=== PATIENT | male | born 1980 | race Caucasian/White ===

== ENCOUNTER 2024-12-16 15:46 | Emergency (ER) | payer SELFPAY ==
[2024-12-16 15:46] VITALS: BP 138/95; PULSE 94; RESP 18; TEMP 36.6; O2SAT 100
--- NOTE | 2024-12-16 15:51 | ED.GENADULT ---
HPI - General Adult General Chief complaint: Urogenital-Male Stated complaint: STD check Time Seen by Provider: 12/16/24 15:48 Source: patient Related Data Allergies Allergy/AdvReac Type Severity Reaction Status Date / Time No Known Allergies Allergy Verified 12/16/24 15:51 [facility] Social History Social History Alcohol intake: current Course Vital Signs Vital signs: Vital Signs Temperature 36.6 C 12/16/24 15:46 Pulse Rate 94 12/16/24 15:46 Respiratory Rate 18 12/16/24 15:46 Blood Pressure 138/95 H 12/16/24 15:46 Pulse Oximetry 100 12/16/24 15:46 Oxygen Delivery Room Air 12/16/24 15:46 Temperature 36.6 C 12/16/24 15:46 Pulse Rate 94 12/16/24 15:46 Respiratory Rate 18 12/16/24 15:46 Blood Pressure 138/95 H 12/16/24 15:46 Pulse Oximetry 100 12/16/24 15:46 Oxygen Delivery Room Air 12/16/24 15:46 Medical Decision Making Vital Signs Vital Signs: Vital Signs Temperature 36.6 C 12/16/24 15:46 Pulse Rate 94 12/16/24 15:46 Respiratory Rate 18 12/16/24 15:46 Blood Pressure 138/95 H 12/16/24 15:46 Pulse Oximetry 100 12/16/24 15:46 Oxygen Delivery Room Air 12/16/24 15:46 Temperature 36.6 C 12/16/24 15:46 Pulse Rate 94 12/16/24 15:46 Respiratory Rate 18 12/16/24 15:46 Blood Pressure 138/95 H 12/16/24 15:46 Pulse Oximetry 100 12/16/24 15:46 Oxygen Delivery Room Air 12/16/24 15:46 Lab Data Labs: Lab Results 12/16/24 12/16/24 Range/Units 15:51 15:53 Urine Color Light yellow (Yellow) Urine Appearance Cloudy A (Clear) Urine pH 6.0 (5.0-8.0) Ur Specific [place] 1.025 H (1.010-1.020) Urine Protein Negative (Negative) Urine Glucose (UA) Negative (Negative) Urine Ketones Negative (Negative) Ur Blood (Man) Trace-intact H (Negative) Urine Nitrate Negative (Negative) Urine Bilirubin Negative (Negative) Urine Urobilinogen 0.2 (0.2-1.0) mg/dL Leukocyte Esterase Rfl 1+ H (Negative) YAMILETH/UL Urine RBC 11-20 H (0-2) /hpf Urine WBC >75 H (0-3) /hpf Urine WBC Clumps Present H (None) /hpf Ur Squamous Epith Cells Occasional (Few) /hpf Amorphous Sediment Few H (None) Urine Bacteria 2+ H (None) /hpf C. trachomatis (PCR) Pending N. gonorrhoeae (PCR) Pending Discharge Plan Discharge Clinical Impression: Urinary tract infection, Exposure to STD Patient Disposition: Home Condition: Stable Instructions: Antibiotic Form, Sexually Transmitted Diseases (ED), Urinary Tract Infection in Men (ED) Additional Instructions: Return if symptoms are worsening , call your family physician for appointment, take Tylenol as as needed for aches and pain, continue home medications. Go to health department at [place] for further evaluation Patient Language: Azeri Follow-up/Referrals: Armando Garcias MD [Primary Care Provider] -
[2024-12-16 16:42] LABS: Add Urine Microscopic? YES; Bilirubin Urine Negative (Negative); Blood Urine Trace-intact (Negative); Color Urine Light Yellow (Yellow); Glucose Urine UA Negative (Negative); Ketones Urine Negative (Negative); Leukocyte Esterase Ur 1+ LEU/UL (Negative); Nitrate Urine Negative (Negative); Protein Urine Negative (Negative); Specific Grav Ur 1.025 (1.010-1.020); Urobilinogen Urine 0.2 mg/dL (0.2-1.0)
[2024-12-16 16:50] LABS: Appearance Urine Cloudy (Clear); WBC Urine >75 /hpf (0-3)
[2024-12-16 16:51] LABS: Amorphous Sediment Urine Few; Bacteria Urine 2+ /hpf; Squamous Epithelial Cell Urine Occasional /hpf (Few); WBC Clumps Urine Present /hpf
[2024-12-16] MEDS: CIPROFLOXACIN 500 MG TAB PO (17:07)
[2024-12-16] MEDS: DOXYCYCLINE HYCLATE 100 MG TABLET PO (17:07)
[2024-12-16] MEDS: cefTRIAXone 1 GM VIAL 0.5 GM IM (17:07)
[2024-12-16 17:13] VITALS: BP 119/65; PULSE 79; RESP 20; TEMP 36.9; O2SAT 97
[2024-12-18 08:43] LABS: Chlamydia trachomatis NOT DETECTED (NOT DETECTE); Neisseria gonorrhoeae PCR DETECTED (NOT DETECTE)
--- NOTE | 2024-12-19 12:29 | PC.NURSE ---
FINAL URINE CULTURE REPORT; NO GROWTH
== END 2024-12-16 17:13 | disposition home or self-care (01) ==
PROVIDERS: Emergency Provider Emergency Medicine; PCP Internal Medicine
DX: N39.0 Urinary tract infection, site not specified (principal); Z20.2 Contact with and (suspected) exposure to infections with a predominantly sexual mode of transmission
CPT/HCPCS: 81001; 87086; 87491; 87591; 96372; 99283; A9270; J0696